=== PATIENT | male | born 1955 | race Hispanic/Latino ===

== ENCOUNTER → 2020-06-17 | Outpatient (CLI) | payer MEDICARE ==
--- NOTE | 2020-06-17 11:10 | Diagnostic Imaging Report ---
EXAM: US ABDOMEN COMPLETE DATE: 06/17/2020 9:06 AM INDICATION: Abdominal hernia COMPARISON: None TECHNIQUE: Transverse and longitudinal gaitan scale and color doppler sonographic images of the upper abdomen were obtained. FINDINGS: LIVER 12.9 cm in the right midclavicular line. Normal echogenicity of the liver with normal contour, no masses. SPLEEN 10.1 cm in maximum diameter. Normal echogenicity, no masses. GALLBLADDER No gallbladder wall thickening, distension, stone, or pericholecystic fluid. Negative reported sonographic Cole's sign. The gallbladder wall measures 2mm BILE DUCTS No intra nor extra-hepatic biliary dilation. Common bile duct measures 2mm PANCREAS: Visualized portions are normal. RIGHT KIDNEY: 11.8 cm Echogenicity: Normal Collecting System: No hydronephrosis Stones: None Cyst/Mass: None LEFT KIDNEY: 11.3 cm Echogenicity: Normal Collecting System: No hydronephrosis Stones: None Cyst/Mass: None VESSELS: Aorta: Visualized portions are within normal size limits Inferior Vena Cava: Visualized portions are normal Main Portal Vein: 0.8 cm, normal size with hepatopetal flow. FREE FLUID: None IMPRESSION: Unremarkable abdominal ultrasound. Specifically, no ultrasound evidence of abdominal hernia. Signed by: Sissy Cohn MD on 06/17/2020 11:07 AM
== END ==
LOC: RAD 08:27
PROVIDERS: ATTEND Family Medicine
DX: R10.84 Generalized abdominal pain (principal); K46.9 Unspecified abdominal hernia without obstruction or gangrene
CPT/HCPCS: 76700